=== PATIENT | male | born 1960 | race American Indian/Alaskan Native ===

== ENCOUNTER 2018-11-05 23:03 | Inpatient (IN) | payer SELFPAY ==
[2018-11-05] MEDS ORDERED: DUONEB *Not for PRN Use IH ONE (23:08)
[2018-11-05] MEDS ORDERED: MAGNESIUM SULFATE 2GM/50ML 2 GM/50 ML BAG IV ONE ×2 (23:17→23:20)
[2018-11-05] MEDS ORDERED: SOLU-Medrol ONE (23:17)
[2018-11-05] MEDS ORDERED: ATROVENT IH ONE (23:20)
[2018-11-05] MEDS ORDERED: PROVENTIL IH ONE (23:20)
[2018-11-05] MEDS ORDERED: SOLU-Medrol IV ONE (23:20)
[2018-11-05] MEDS ORDERED: NACL 0.9% 500 ML 500 ML IV ONE (23:37)
[2018-11-05] MEDS ORDERED: ADRENALINE P/F SUB-Q ONE (23:37)
--- NOTE | 2018-11-05 23:38 | Emergency Department Report ---
ED Asthma HPI - General Chief Complaint: Dyspnea/Respdistress Stated Complaint: GABRIELLA Time Seen by Provider: 11/05/18 23:25 Source: patient, RN notes reviewed, old records reviewed Mode of arrival: Stretcher Limitations: Physical Limitation - History of Present Illness Initial Comments: This is a 58-year-old gentleman. The patient is not known to this provider previously. He reports no primary care doctor. He has a past medical history of tobacco consumption, and asthma. He reports no lifetime hospitalizations. He reports no lifetime intubations. He presents to the emergency room with a complaint of cough, wheezing, shortness of breath. These symptoms have been going on for the past few days. They're getting worse. No improvement with katarzyna e nebulizer therapy. He has central chest wall pain, worse with coughing and palpation, secondary to cough and wheezing. He denies DVT, pulmonary embolus risk factors. In the emergency room, patient given multiple rounds of albuterol, Atrovent, magnesium sulfate 1, steroids 1, and subcutaneous epinephrine 2 The patient reports that these interventions somewhat improved his symptoms, but he is still having shortness of breath, and wheezing. MD Complaint: "asthma attack", shortness of breath, wheezing Asthma History: childhood onset Severity: severe Associated Symptoms: dry cough Treatments Prior to Arrival: inhaled bronchodilator - Related Data Previous Rx's Medication Instructions Recorded Last Taken Type ALBUTEROL Inhaler (OR & NICU) 2 puff IH QID PRN #1 inhalation 11/12/13 11/05/18 Rx [ProAir HFA Inhaler] Allergies Allergy/AdvReac Type Severity Reaction Status Date / Time No Known Allergies Allergy Verified 11/05/18 23:07 ED Review of Systems ROS: Stated complaint: GABRIELLA Other details as noted in HPI Constitutional: malaise. denies: fever ENT: congestion Respiratory: shortness of breath, SOB with exertion, wheezing Cardiovascular: chest pain, dyspnea on exertion Gastrointestinal: denies: abdominal pain, nausea, vomiting Musculoskeletal: denies: back pain Skin: denies: lesions Neurological: weakness Psychiatric: anxiety ED Past Medical Hx - Past Medical History Hx Asthma: Yes - Social History Smoking Status: Unknown if ever smoked Substance Use Type: None - Medications Home Medications: Home Medications Medication Instructions Recorded Confirmed Last Taken Type ALBUTEROL Inhaler (OR & NICU) 2 puff IH QID PRN #1 inhalation 11/12/13 11/05/18 11/05/18 Rx [ProAir HFA Inhaler] ED Physical Exam - General Limitations: No Limitations General appearance: alert, anxious, in distress - Head Head exam: Present: atraumatic, normocephalic - Eye Eye exam: Present: normal appearance, EOMI - ENT ENT exam: Present: normal exam, normal orophraynx, mucous membranes moist, normal external ear exam - Neck Neck exam: Present: normal inspection, full ROM. Absent: tenderness, meningismus - Respiratory Respiratory exam: Present: respiratory distress, wheezes, rhonchi, decreased breath sounds - Cardiovascular Cardiovascular Exam: Present: normal rhythm, tachycardia, normal heart sounds. Absent: systolic murmur, diastolic murmur, rubs, gallop - GI/Abdominal GI/Abdominal exam: Present: soft. Absent: distended, tenderness, guarding, r ebound, rigid, pulsatile mass - Rectal Rectal exam: Present: deferred - Extremities Exam Extremities exam: Present: normal inspection, full ROM, other (2+ pulses noted in the bilateral upper, lower extremities. Compartments soft. No long bony tenderness. The pelvis is stable.). Absent: pedal edema, joint swelling, calf tenderness - Back Exam Back exam: Present: normal inspection, full ROM. Absent: tenderness, CVA tenderness (R), paraspinal tenderness, vertebral tenderness - Neurological Exam Neurological exam: Present: alert, other (Extraocular movements intact. Tongue midline. No facial droop. Facial sensation intact to light touch in the V1, V2, V3 distribution bilaterally. 5 and 5 strength in 4 extremities.. Sensation is intact to light touch in 4 extremities.). Absent: motor sensory deficit - Psychiatric Psychiatric exam: Present: anxious - Skin Skin exam: Present: warm, dry, intact, normal color. Absent: rash ED Course Vital Signs 11/05/18 11/05/18 11/05/18 23:07 23:10 23:12 Temperature 98.0 F Pulse Rate 90 99 H Pulse Rate [ 90 Anterior Bilateral Throughout] Respiratory 22 24 Rate Respiratory 24 Rate [Anterior Bilateral Throughout] Blood Pressure 116/88 O2 Sat by Pulse 95 Oximetry 11/05/18 11/05/18 11/05/18 23:15 23:17 23:18 Temperature Pulse Rate 87 80 80 Pulse Rate [ Anterior Bilateral Throughout] Respiratory 19 29 H 24 Rate Respiratory Rate [Anterior Bilateral Throughout] Blood Pressure 155/94 155/94 O2 Sat by Pulse 100 100 100 Oximetry 11/05/18 11/05/18 11/05/18 23:20 23:25 23:31 Temperature Pulse Rate 84 Pulse Rate [ 80 81 Anterior Bilateral Throughout] Respiratory 24 Rate Respiratory 25 H 26 H Rate [Anterior Bilateral Throughout] Blood Pressure 155/94 O2 Sat by Pulse 94 Oximetry 11/05/18 11/06/18 11/06/18 23:45 00:01 00:15 Temperature Pulse Rate 87 93 H 87 Pulse Rate [ Anterior Bilateral Throughout] Respiratory 29 H 23 22 Rate Respiratory Rate [Anterior Bilateral Throughout] Blood Pressure 155/94 162/91 162/91 O2 Sat by Pulse 87 93 95 Oximetry 11/06/18 11/06/18 11/06/18 00:25 00:27 00:31 Temperature Pulse Rate 75 Pulse Rate [ 73 87 Anterior Bilateral Throughout] Respiratory 21 Rate Respiratory 20 20 Rate [Anterior Bilateral Throughout] Blood Pressure 150/84 O2 Sat by Pulse 97 Oximetry 11/06/18 11/06/18 11/06/18 00:45 01:01 01:15 Temperature Pulse Rate 83 77 73 Pulse Rate [ Anterior Bilateral Throughout] Respiratory 21 18 20 Rate Respiratory Rate [Anterior Bilateral Throughout] Blood Pressure 150/84 145/84 146/74 O2 Sat by Pulse 99 97 97 Oximetry ED Medical Decision Making - Lab Data Result diagrams: 11/05/18 23:39 11/05/18 23:39 Vital Signs 11/05/18 11/05/18 11/05/18 23:07 23:10 23:12 Temperature 98.0 F Pulse Rate 90 99 H Pulse Rate [ 90 Anterior Bilateral Throughout] Respiratory 22 24 Rate Respiratory 24 Rate [Anterior Bilateral Throughout] Blood Pressure 116/88 O2 Sat by Pulse 95 Oximetry 11/05/18 11/05/18 11/05/18 23:15 23:17 23:18 Temperature Pulse Rate 87 80 80 Pulse Rate [ Anterior Bilateral Throughout] Respiratory 19 29 H 24 Rate Respiratory Rate [Anterior Bilateral Throughout] Blood Pressure 155/94 155/94 O2 Sat by Pulse 100 100 100 Oximetry 11/05/18 11/05/18 11/05/18 23:20 23:25 23:31 Temperature Pulse Rate 84 Pulse Rate [ 80 81 Anterior Bilateral Throughout] Respiratory 24 Rate Respiratory 25 H 26 H Rate [Anterior Bilateral Throughout] Blood Pressure 155/94 O2 Sat by Pulse 94 Oximetry 11/05/18 11/06/18 11/06/18 23:45 00:01 00:15 Temperature Pulse Rate 87 93 H 87 Pulse Rate [ Anterior Bilateral Throughout] Respiratory 29 H 23 22 Rate Respiratory Rate [Anterior Bilateral Throughout] Blood Pressure 155/94 162/91 162/91 O2 Sat by Pulse 87 93 95 Oximetry 11/06/18 11/06/18 00:25 00:27 Temperature Pulse Rate Pulse Rate [ 73 87 Anterior Bilateral Throughout] Respiratory Rate Respiratory 20 20 Rate [Anterior Bilateral Throughout] Blood Pressure O2 Sat by Pulse Oximetry Lab Results 11/05/18 11/05/18 11/05/18 Range/Units 23:39 23:39 23:39 PT 13.9 (12.2-14.9) Sec. INR 1.01 (0.87-1.13) Sodium 140 (137-145) mmol/L Potassium 4.0 (3.6-5.0) mmol/L Chloride 99.6 (98-107) mmol/L Carbon Dioxide 27 (22-30) mmol/L Anion Gap 17 mmol/L BUN 14 (9-20) mg/dL Creatinine 1.2 (0.8-1.5) mg/dL Estimated GFR > 60 ml/min BUN/Creatinine Ratio 12 % Glucose 97 (75-100) mg/dL Calcium 9.7 (8.4-10.2) mg/dL Magnesium 2.70 H (1.7-2.3) mg/dL Total Creatine Kinase 484 H (55-170) units/L Troponin T < 0.010 (0.00-0.029) ng/mL - EKG Data -: EKG Interpreted by Mi EKG shows normal: sinus rhythm Rate: normal - EKG Data 11/06/18 01:56 Sinus rhythm, 88 bpm, normal axis, motion artifact, borderline high left ventricular voltage, atrial enlargement, this is an abnormal EKG, this EKG is not consistent with ST elevation myocardial infarction. - Radiology Data Radiology results: report reviewed, image reviewed X-ray of the chest is negative for acute disease. - Medical Decision Making Differential diagnosis, including but not limited to: Asthma exacerbation, bronchitis, pneumonia, pneumothorax Costochondritis Assessment and plan 58-year-old gentleman with cough, wheezing, shortness of breath. Patient required multiple rounds of therapy. He is clinically improved, but still wheezing and short of breath. He still has some supraclavicular retractions. I have recommended admission to the medical service for asthma exacerbation. This is discussed with the patient, who verbalizes understanding, and is amenable to hospitalization. Dr. Trevino, the hospital physician, has accepted the patient to the medical service. Critical Care Time: Yes Critical care time in (mins) excluding proc time.: 35 Critical care attestation.: If time is entered above; I have spent that time in minutes in the direct care of this critically ill patient, excluding procedure time. ED Disposition Clinical Impression: Asthma exacerbation Qualifiers: Asthma severity: severe Asthma persistence: unspecified Qualified Code(s): J45.901 - Unspecified asthma with (acute) exacerbation Disposition: -09 OP ADMIT IP TO THIS HOSP Is pt being admited?: Yes Condition: Good Referrals: ИВАН MILLER MD [Primary Care Provider] - 3-5 Days
--- NOTE | 2018-11-06 00:08 | XRay Report ---
PROCEDURE: XR CHEST 1V AP TECHNIQUE: Chest radiograph single view. HISTORY: cp asthma COMPARISONS: None . FINDINGS: Heart: Normal. Mediastinum/Vessels: Normal. Lungs/Pleural space: Normal. Bony thorax: No acute osseous abnormality. Life support devices: None. IMPRESSION: No acute cardiopulmonary abnormality. This document is electronically signed by Gertrude Wetzel DO., November 06 2018 12:05:32 AM ET
[2018-11-06] MEDS ORDERED: ATROVENT IH ONE (00:12)
[2018-11-06] MEDS ORDERED: PROVENTIL IH ONE (00:12)
[2018-11-06] MEDS: ADRENALINE P/F SUB-Q ONE ×2 (00:17→00:23)
[2018-11-06 00:20] LABS: INR 1.01 (0.87-1.13)
[2018-11-06 00:30] LABS: BUN/Creatinine Ratio 12; Blood Urea Nitrogen 14 mg/dL (9-20); Calcium 9.7 mg/dL (8.4-10.2); Hemolysis Index 12
[2018-11-06 00:54] LABS: Hemoglobin 14.7 gm/dl (11.8-15.2); Red Blood Count 4.78 M/mm3 (3.65-5.03)
[2018-11-06 00:55] LABS: Hematocrit 43.6 % (35.5-45.6); Mean Corpuscular HGB Conc 34 % (32-34); Mean Corpuscular Volume 91 fl (84-94); Platelet Count 243 K/mm3 (140-440); Red Cell Distribution Width 14.1 % (13.2-15.2)
[2018-11-06] MEDS ORDERED: SODIUM CHLORIDE FLUSH SYRINGE 10 ML IV PRN (01:11)
[2018-11-06] MEDS ORDERED: TYLENOL PO PRN (01:11)
[2018-11-06] MEDS ORDERED: ZOFRAN IV PRN (01:11)
--- NOTE | 2018-11-06 01:13 | History and Physical Report ---
History of Present Illness Date of examination: 11/06/18 History of present illness: 58-year-old man with no medical problem comes to the emergency room with complaints of shortness of breath, wheezing cough non productive for 4 days. Review of systems Constitutional: no weight loss, chills, fever Ears, eyes, nose, mouth and throat: no nasal congestion, no nasal discharge, no sinus pressure, no vision change, no red eye. Neck: No neck pain or rigidity. Cardiovascular: no palpitations, chest pain Respiratory:+ cough, shortness of breath Gastrointestinal: no hematochezia, abdominal pain Genitourinary : no frequency , no hematuria Musculoskeletal: no joint swelling or muscle ache Integumentary: no rash, no pruritis Neurological: no parathesias, no focal weakness Endocrine: no cold or heat intolerance, no polyuria or polydipsia Hematologic/Lymphatic: no easy bruising, no easy bleeding, no gland swelling Allergic/Immunologic: no urticaria, no angioedema. PAST MEDICAL HISTORY:none PAST SURGICAL HISTORY: Gastric bypass SOCIAL HISTORY:+alcohol, no drugs, +tobacco FAMILY HISTORY: Hypertension Medications and Allergies Allergies Allergy/AdvReac Type Severity Reaction Status Date / Time No Known Allergies Allergy Verified 11/05/18 23:07 Home Medications Medication Instructions Recorded Confirmed Last Taken Type ALBUTEROL Inhaler (OR & NICU) 2 puff IH QID PRN #1 inhalation 11/12/13 11/05/18 11/05/18 Rx [ProAir HFA Inhaler] Active Meds: Active Medications Acetaminophen (Tylenol) 650 mg PO Q4H PRN PRN Reason: Pain MILD(1-3)/Fever >100.5/GARDNER Albuterol/Ipratropium (Duoneb *Not For Prn Use*) 1 ampul IH Q6HRT [facility] Enoxaparin Sodium (Lovenox) 30 mg SUB-Q QDAY KATHERINE Ondansetron HCl (Zofran) 4 mg IV Q8H PRN PRN Reason: Nausea And Vomiting Sodium Chloride (Sodium Chloride Flush Syringe 10 Ml) 10 ml IV BID KATHERINE Sodium Chloride (Sodium Chloride Flush Syringe 10 Ml) 10 ml IV PRN PRN PRN Reason: LINE FLUSH Exam - Physical Exam Narrative exam: General Apperance: The patient lying in bed, breathing comfortable HEENT: Normocephalic, atraumatic. Pupils equally round and reactive to light, EOMI, no sclericterus or JVD or thyromegaly or nodule. , no carotid bruit, mucous membranes moist, no exudate or erythema Heart: S1-S2, regular is rhythm Lungs: Wheezing bilaterally, breathing comfortable Abdomen: Positive bowel sounds, soft, nontender, nondistended, no organomegaly Extremities: No edema cyanosis clubbing Skin: no rash, nodule, warm and dry Neuro: cranial nerves 2-12 intact, speech is fluent, motor/sensory intact - Constitutional Vitals: Temp Pulse Resp BP Pulse Ox 98.0 F 87 20 162/91 95 11/05/18 23:07 11/06/18 00:27 11/06/18 00:27 11/06/18 00:15 11/06/18 00:15 Results - Labs CBC & Chem 7: 11/05/18 23:39 11/05/18 23:39 Labs: Abnormal lab results 11/05/18 Range/Units 23:39 Magnesium 2.70 H (1.7-2.3) mg/dL Total Creatine Kinase 484 H (55-170) units/L Assessment and Plan Assessment Acute asthma exacerbation Elevated blood pressure Plan Start high-dose steroids, nebulizer treatments IV hydralazine as needed DVT prophylaxis
[2018-11-06] MEDS ORDERED: APRESOLINE IV PRN (01:17)
[2018-11-06] MEDS: DUONEB *Not for PRN Use IH SCH ×4 (03:17→19:40)
[2018-11-06] MEDS ORDERED: SOLU-Medrol IV SCH ×2 (06:00→09:00)
[2018-11-06 08:29] LABS: BUN/Creatinine Ratio 15; Blood Urea Nitrogen 15 mg/dL (9-20); Calcium 8.9 mg/dL (8.4-10.2); Hemolysis Index 6
[2018-11-06] MEDS: LOVENOX SUB-Q SCH (09:31)
[2018-11-06] MEDS: SODIUM CHLORIDE FLUSH SYRINGE 10 ML IV SCH ×2 (09:32→23:25)
[2018-11-06] MEDS ORDERED: LOVENOX SUB-Q SCH (10:00)
[2018-11-06] MEDS: SOLU-Medrol IV SCH ×2 (13:32→23:24)
[2018-11-06 15:06] LABS: Hematocrit 39.8 % (35.5-45.6); Hemoglobin 13.3 gm/dl (11.8-15.2); Mean Corpuscular HGB Conc 33 % (32-34); Mean Corpuscular Volume 90 fl (84-94); Platelet Count 240 K/mm3 (140-440); Red Blood Count 4.41 M/mm3 (3.65-5.03); Red Cell Distribution Width 13.6 % (13.2-15.2)
[2018-11-06 15:11] LABS: Band Neutrophils # (Manual) 0.3 K/mm3; Basophils % (Manual) 0 % (0.0-1.8); Eosinophils % (Manual) 0 % (0.0-4.3); Monocytes % (Manual) 0 % (0.0-7.3); Platelet Estimate Consistent w Auto; RBC Morphology Normal; Total Cells Counted 100
--- NOTE | 2018-11-06 16:18 | Event Note ---
Date: 11/06/18 Patient seen and examined medical records reviewed Admitted this morning with acute exacerbation of COPD On oxygen nebulizers IV steroids and antibiotics and supportive care Objective the current management, consider pulmonary evaluation if needed Possible discharge in 1-2 days if stable Plan of care is reviewed with the patient and his nurse
[2018-11-07] MEDS: DUONEB *Not for PRN Use IH SCH ×3 (02:20→13:17)
[2018-11-07] MEDS: SOLU-Medrol IV SCH (06:44)
[2018-11-07] MEDS: SODIUM CHLORIDE FLUSH SYRINGE 10 ML IV SCH (09:21)
[2018-11-07] MEDS: LOVENOX SUB-Q SCH (09:24)
[2018-11-07] MEDS ORDERED: SOLU-Medrol IV SCH (12:17)
[2018-11-07 12:18] VITALS: BP 112/46
--- NOTE | 2018-11-07 12:52 | Discharge Summary ---
Providers - Providers Date of Admission: 11/06/18 01:11 Date of discharge: 11/07/18 Attending physician: EDIS HERNANDEZ [facility] Reason for admission: worsening shortness of breath, worsening wheezing Condition: Fair Pertinent studies: Chest x-ray; no acute abnormality Hospital course: 58-year-old -[place] male patient with no significant past medical history not on any medication except for alcohol and tobacco use, history of asthma/COPD who is admitted through emergency room with worsening shortness of breath and worsening wheezing, Noted to be in acute exacerbation of COPD/asthma, managed with oxygen nebulizers and IV steroids and antibiotics Symptoms significantly improved, Smoking cessation counseling done, advised nicotine patch Today he is comfortable no new complaints vital signs stable, Physical examination is unremarkable Patient is hemodynamically and clinically stable at discharge Discharge diagnosis and management; --Acute hypoxic respiratory failure; resolved --Acute exacerbation of/asthma/COPD Received oxygen nebulizers and IV steroids and IV antibiotics Symptoms improved --Ongoing tobacco use; smoking cessation advised nicotine patch Patient is hemodynamically and clinically stable for discharge Disposition: IA-01 TO HOME OR SELFCARE Time spent for discharge: 31 min Core Measure Documentation - Palliative Care Palliative Care/ Comfort Measures: Not Applicable - Core Measures Any of the following diagnoses?: none Exam - Constitutional Vitals: Temp Pulse Resp BP Pulse Ox 98.0 F 64 18 112/46 94 11/07/18 12:07 11/07/18 12:07 11/07/18 12:07 11/07/18 12:07 11/07/18 12:46 General appearance: Present: no acute distress, well-nourished - EENT Eyes: Present: PERRL, EOM intact - Neck Neck: Present: supple, normal ROM - Respiratory Respiratory effort: normal Respiratory: bilateral: diminished, negative: rales, rhonchi, wheezing - Cardiovascular Rhythm: regular Heart Sounds: Present: S1 & S2 - Extremities Extremities: no ischemia, No edema - Abdominal General gastrointestinal: Present: soft, non-tender, non-distended, normal bowel sounds - Integumentary Integumentary: Present: clear, warm - Musculoskeletal Musculoskeletal: strength equal bilaterally - Psychiatric Psychiatric: appropriate mood/affect, cooperative - Neurologic Neurologic: CNII-XII intact, moves all extremities Plan Activity: no restrictions Diet: regular Special Instructions: smoking cessation Additional Instructions: Advised to go to outside clinic in 2-4 days. Smoking cessation. Room air O2 sats 94%, no indication for home oxygen Follow up with: ИВАН MILLER MD [Primary Care Provider] - 3-5 Days Prescriptions: predniSONE [Deltasone] 4 tab PO DAILY #21 tablet Doxycycline Hyclate [Doxycycline Hyclate TAB] 100 mg PO Q12HR #14 tab ALBUTEROL Inhaler (OR & NICU) [ProAir HFA Inhaler] 2 puff IH QID PRN #1 inhalation PRN Reason: Shortness Of Breath
== END 2018-11-07 16:15 | disposition home or self-care (01) | DRG 189 ==
LOC: ED 23:03 → 3A 11-06 01:11
PROVIDERS: ADMIT Internal Medicine; ATTEND Internal Medicine
DX: J96.01 Acute respiratory failure with hypoxia (principal); J44.1 Chronic obstructive pulmonary disease with (acute) exacerbation; J45.901 Unspecified asthma with (acute) exacerbation; F41.9 Anxiety disorder, unspecified; F17.210 Nicotine dependence, cigarettes, uncomplicated; Z71.6 Tobacco abuse counseling; Z98.84 Bariatric surgery status; Z82.49 Family history of ischemic heart disease and other diseases of the circulatory system; Z72.89 Other problems related to lifestyle; Z79.899 Other long term (current) drug therapy
CPT/HCPCS: 36415; 71045; 80048; 82550; 83735; 84484; 85007; 85025; 85027; 85610; 93005; 93010; 94640; 94644; 94760; 99406; G0378; J0171; J1650; J2930; J3475; J7040

== ENCOUNTER 2019-02-04 08:06 | Emergency (ER) | payer SELFPAY ==
[2019-02-04 08:17] VITALS: BP 118/69
[2019-02-04] MEDS ORDERED: DUONEB *Not for PRN Use IH ONE (08:41)
[2019-02-04] MEDS ORDERED: DECADRON IM ONE (08:42)
--- NOTE | 2019-02-04 09:02 | Emergency Department Report ---
ED Asthma HPI - General Chief Complaint: Adult Asthma Stated Complaint: ASTHMA Time Seen by Provider: 02/04/19 08:57 Source: patient Mode of arrival: Ambulatory Limitations: No Limitations - History of Present Illness Initial Comments: 58-year-old -[place] male, comes in asthma exacerbation has been his nebulizer solution. Patient denies any fever chills nausea no vomiting. Complaint: shortness of breath, wheezing Onset/Timin -: days(s) Severity: moderate Context: ran out of meds Associated Symptoms: none Treatments Prior to Arrival: inhaled bronchodilator - Related Data Current Asthma Therapy: inhaled bronchodilator Previous Rx's Medication Instructions Recorded Last Taken Type ALBUTEROL Inhaler (OR & NICU) 2 puff IH QID PRN #1 inhalation 11/07/18 Unknown Rx [ProAir HFA Inhaler] Doxycycline Hyclate [Doxycycline 100 mg PO Q12HR #14 tab 11/07/18 Unknown Rx Hyclate TAB] Acetaminophen [Non-Aspirin Extra 500 mg PO Q6HR PRN #30 tablet 11/22/18 Unknown Rx Strength] Ibuprofen [Motrin] 600 mg PO Q8H PRN #30 tablet 11/22/18 Unknown Rx Albuterol Sulfate [Albuterol 0.63% 0.63 mg IH TID PRN #270 ml 02/04/19 Unknown Rx NEBS] Albuterol Sulfate [Proair 90 mcg IH Q4HR PRN #2 [email or web address] 02/04/19 Unknown Rx Respiclick] predniSONE [Deltasone] 4 tab PO DAILY #21 tablet 02/04/19 Unknown Rx Allergies Allergy/AdvReac Type Severity Reaction Status Date / Time onion Allergy Anaphylaxis Verified 11/22/18 07:52 tomato Allergy Nausea Verified 11/22/18 07:52 ED Review of Systems ROS: Stated complaint: ASTHMA Other details as noted in HPI Comment: All other systems reviewed and negative Constitutional: denies: chills, fever Eyes: denies: eye pain, eye discharge, vision change ENT: denies: ear pain, throat pain Respiratory: shortness of breath, wheezing ED Past Medical Hx - Past Medical History Previous Medical History?: Yes Hx Asthma: Yes Hx HIV: No - Surgical History Past Surgical History?: No - Social History Smoking Status: Current Every Day Smoker Substance Use Type: None - Medications Home Medications: Home Medications Medication Instructions Recorded Confirmed Last Taken Type ALBUTEROL Inhaler (OR & NICU) 2 puff IH QID PRN #1 inhalation 11/07/18 Unknown Rx [ProAir HFA Inhaler] Doxycycline Hyclate [Doxycycline 100 mg PO Q12HR #14 tab 11/07/18 Unknown Rx Hyclate TAB] Acetaminophen [Non-Aspirin Extra 500 mg PO Q6HR PRN #30 tablet 11/22/18 Unknown Rx Strength] Ibuprofen [Motrin] 600 mg PO Q8H PRN #30 tablet 11/22/18 Unknown Rx Albuterol Sulfate [Albuterol 0.63% 0.63 mg IH TID PRN #270 ml 02/04/19 Unknown Rx NEBS] Albuterol Sulfate [Proair 90 mcg IH Q4HR PRN #2 aer.[email or web address] 02/04/19 Unknown Rx Respiclick] predniSONE [Deltasone] 4 tab PO DAILY #21 tablet 02/04/19 Unknown Rx ED Physical Exam - General Limitations: No Limitations General appearance: alert, in no apparent distress - Head Head exam: Present: atraumatic, normocephalic - Eye Eye exam: Present: normal appearance - ENT ENT exam: Present: mucous membranes moist - Respiratory Respiratory exam: Present: wheezes - Cardiovascular Cardiovascular Exam: Present: regular rate, normal rhythm. Absent: systolic murmur, diastolic murmur, rubs, gallop - Neurological Exam Neurological exam: Present: alert, oriented X3 - Psychiatric Psychiatric exam: Present: normal affect, normal mood - Skin Skin exam: Present: warm, dry, intact, normal color. Absent: rash ED Course Vital Signs 02/04/19 08:16 Temperature 97.5 F L Pulse Rate 57 L Respiratory 20 Rate Blood Pressure 118/69 O2 Sat by Pulse 99 Oximetry - Reevaluation(s) Reevaluation #1: 02/04/19 09:42 Patient was reevaluated by this provider breath sounds are clear bilateral no acute distress. Patient reports he feels much better. ED Medical Decision Making - Medical Decision Making 58-year-old -[place] male, comes in asthma exacerbation has been his nebulizer solution. Patient denies any fever chills nausea no vomiting. He was given DuoNeb dexamethasone 10 mg IM. Patient be discharged home with a prescription for albuterol inhaler, albuterol nebulizer solution, prednisone pack. Patient to follow-up with a primary care provider I referred him to community clinic. Patient verbalized understanding. Critical care attestation.: If time is entered above; I have spent that time in minutes in the direct care of this critically ill patient, excluding procedure time. ED Disposition Clinical Impression: Asthma exacerbation Qualifiers: Asthma severity: unspecified severity Asthma persistence: unspecified Qualified Code(s): J45.901 - Unspecified asthma with (acute) exacerbation Disposition: TO HOME OR SELFCARE Is pt being admited?: No Does the pt Need Aspirin: No Condition: Stable Additional Instructions: Please take steroids as prescribed. Please she sure inhalers as needed for wheezing and shortness of breathing. Follow up with the primary care provider I have listed one below for your convenience. Prescriptions: Albuterol Sulfate [Albuterol 0.63% NEBS] 0.63 mg IH TID PRN #270 ml PRN Reason: Wheezing predniSONE [Deltasone] 4 tab PO DAILY #21 tablet Albuterol Sulfate [Proair Respiclick] 90 mcg IH Q4HR PRN #2 aer.[email or web address] PRN Reason: Wheezing Referrals: [facility] [Outside] - 3-5 Days [facility] [Outside] - 3-5 Days [facility] [Outside] - 3-5 Days
== END 2019-02-04 09:58 | disposition home or self-care (01) ==
LOC: ED 08:06
DX: J45.901 Unspecified asthma with (acute) exacerbation (principal); F17.200 Nicotine dependence, unspecified, uncomplicated; Z79.899 Other long term (current) drug therapy; Z91.018 Allergy to other foods
CPT/HCPCS: 96372; 99282; J1100; 94640